=== PATIENT | male | born 1995 | race Caucasian/White ===

== ENCOUNTER 2017-10-13 06:54 | Emergency (ER) | payer SELFPAY ==
[2017-10-13] MEDS: TETRACAINE 0.5% 4 ML OPH LEFT EYE (08:43)
[2017-10-13] MEDS: FLUORESCEIN STRIP LEFT EYE (08:44)
== END 2017-10-13 09:09 | disposition home or self-care (01) ==
LOC: FTE 06:54
DX: S05.02XA Injury of conjunctiva and corneal abrasion without foreign body, left eye, initial encounter (principal); W22.8XXA Striking against or struck by other objects, initial encounter; Y92.9 Unspecified place or not applicable
CPT/HCPCS: 99283